=== PATIENT | male | born 1955 | race Caucasian/White ===

== ENCOUNTER 2017-11-20 11:18 | Emergency (ER) | payer SELFPAY ==
--- NOTE | 2017-11-20 11:20 | ER Report ---
History and Physical Time Seen By MD: 11:19 HPI/ROS CHIEF COMPLAINT: Allergic reaction HISTORY OF PRESENT ILLNESS: [must have 4 elements] REVIEW OF SYSTEMS: Constitutional: [No fever, no chills.] Eyes: [No discharge.] ENT: [No sore throat.] Cardiovascular: [No chest pain, no palpitations.] Respiratory: [No cough, no shortness of breath.] Gastrointestinal: [No abdominal pain, no vomiting.] Genitourinary: [No hematuria.] Musculoskeletal: [No back pain.] Skin: [No rashes.] Neurological: [No headache.] Physical Exam General Appearance: The patient is alert, has no immediate need for airway protection and no signs of toxicity. [ ] Eyes: Pupils equal and round no pallor or injection. ENT, Mouth: Mucous membranes are moist. Respiratory: There are no retractions, lungs are clear to auscultation. Cardiovascular: Regular rate and rhythm. [ ] Gastrointestinal: Abdomen is soft and non tender, no masses, bowel sounds normal. Neurological: [ ] Skin: Warm and dry, no rashes. Musculoskeletal: Neck is supple non tender. Extremities are nontender, nonswollen and have full range of motion. [ ] DIFFERENTIAL DIAGNOSIS: After history and physical exam differential diagnosis was considered for [ ] Depart Departure Condition: Stable Disposition: HOME OR SELF-CARE JACKELYN BLANCO MD Nov 20, 2017 11:20
--- NOTE | 2017-11-20 11:32 | ER Report ---
History and Physical Time Seen By MD: 11:32 HPI/ROS CHIEF COMPLAINT: Swelling to testicles and penis, genital warts, bug bites to extremities and torso HISTORY OF PRESENT ILLNESS: 62-year-old male patient presents to emergency room with complaint of swelling to testicles and penis, general warts and bug bites. Patient states that he is had the bug bites now for approximately a week. He states that they're extremely itchy. He states that he has scratched his right foot to the point that it has bled. He states he is noticed a significant amount of drainage from that. He states that he's not had any fevers or chills. He states he is not taking any medication for this. He states he does have a history of genital warts which he has received treatment for the past. He states that he read on the Internet that he is able to use bleach to help resolve that. He states that he tried that in the past and then tried it again this past week. He states that he has developed significant amounts of redness and swelling to the scrotum as well as penis. Patient states he has pain with ambulation, but no pain to the testicles themselves. REVIEW OF SYSTEMS: Respiratory: No cough, no dyspnea. Cardiovascular: No chest pain, no palpitations. Gastrointestinal: No vomiting, no abdominal pain. Musculoskeletal: No back pain. Allergies: Coded Allergies: No Known Drug Allergies (Unverified , 11/20/17) Home Meds Active Scripts Cephalexin 500 Mg Tab (KEFLEX 500 MG TAB) 500 Mg Tablet, 500 MG PO Q6H, #28 TAB Prov:GUY DAN 11/20/17 Permethrin (PERMETHRIN) 60 Gm Cream..g., 60 GM TP ONCE, #1 BOT 1 Refill May repeat x1 after 2 weeks Prov:GUY DAN 11/20/17 Hydroxyzine Hcl (HYDROXYZINE HCL) 25 Mg Tablet, 25 MG PO Q6H PRN for ITCHING, #30 TAB Prov:GUY DAN 11/20/17 Imiquimod (Aldara) 5 % Cream.pack, 1 [place] TD 3XW, #15 [place] Prov:GUY DAN 11/20/17 Past Medical/Surgical History Patient has a past medical history of smoking, genital warts. Patient has a surgical history of multiple orthopedic surgeries, skin grafting. Reviewed Nurses Notes: Yes Constitutional Vital Sign - Last 24 Hours 11/20/17 11:40 Temp 98.4 Pulse 82 Resp 16 B/P (MAP) 147/90 Pulse Ox 97 O2 Delivery Room Air Physical Exam General Appearance: The patient is alert, has no immediate need for airway protection and no current signs of toxicity. Respiratory: Chest is non tender, lungs are clear to auscultation. Cardiac: regular rate and rhythm Gastrointestinal: Abdomen is soft and non tender, no masses, bowel sounds normal . Musculoskeletal: Neck: Neck is supple and non tender. Extremities have full range of motion and are non tender. Skin: No rashes or lesions. Patient has swelling to his penis as well as his scrotum, his scrotum is red. Patient has genital warts at the base of the penis. Patient has several bug bites to lower extremities, upper extremity is, chest and back. There are mildly erythematous, however he does have several areas of excoriation. The right foot does have abrasions to the dorsal aspect. There is some drainage noted, however does not appear to be purulent. Is mildly erythematous and slightly warm to the touch. DIFFERENTIAL DIAGNOSIS: After history and physical exam differential diagnosis was considered for allergic reaction to bleach, genital warts, scabies. Medical Decision Making ED Course/Re-evaluation ED Course Patient was admitted to exam room, history and physical were obtained. The differential diagnoses were considered. On examination patient has what appears to be bug bites on arms, legs, chest and back. He does have significant excoriation to the top of the right foot. Patient also has swelling and redness to the scrotum as well as swelling to the penis. He does have some genital warts at the base of his penis. I discussed findings with patient. We will go ahead and treat him with Aldara for the warts, hydroxyzine to help with the itching, Keflex because I do have some concerns about infection to the top of the right foot. I also believe that these bug bites or caused by scabies. We'll have him use permethrin cream. He is follow-up with primary care provider in the next [place]. I did give him a refill on his permethrin cream that he can repeat that after 2 weeks if there is a need. I discussed the patient who verbalized understanding and agreement with plan. Decision to Disposition Date: Nov 20, 2017 Decision to Disposition Time: 12:13 Depart Departure Latest Vital Signs Vital Signs Date Time Temp Pulse Resp B/P (MAP) Pulse Ox O2 Delivery O2 Flow Rate FiO2 11/20/17 11:40 98.4 82 16 147/90 97 Room Air Impression: Primary Impression: Scabies Additional Impressions: Genital warts Allergic reaction to chemical substance Condition: Improved Disposition: HOME OR SELF-CARE New Scripts Cephalexin 500 Mg Tab (KEFLEX 500 MG TAB) 500 Mg Tablet 500 MG PO Q6H, #28 TAB Prov: GUY DAN 11/20/17 Permethrin (PERMETHRIN) 60 Gm Cream..g. 60 GM TP ONCE, #1 BOT 1 Refill May repeat x1 after 2 weeks Prov: GUY DAN 11/20/17 Hydroxyzine Hcl (HYDROXYZINE HCL) 25 Mg Tablet 25 MG PO Q6H PRN for ITCHING, #30 TAB Prov: GUY DAN 11/20/17 Imiquimod (Aldara) 5 % Cream.pack 1 [place] TD 3XW, #15 [place] Prov: GUY DAN 11/20/17 Patient Instructions: Scabies (ED) Additional Instructions: Increase fluid intake. Sleep in another room. Stay out of the room that you were staying in for the next week. Return to the ER if condition worsens. Follow up with a primary care provider in the next week. Avoid applying bleach to your skin. Wash clothes in hot water. Problem Qualifiers Additional Impressions: Allergic reaction to chemical substance Encounter type: initial encounter Injury intent: undetermined intent Qualified Codes: T65.94XA - Toxic effect of unspecified substance, undetermined, initial encounter GYU DAN Nov 20, 2017 11:32
[2017-11-20 11:40] VITALS: BP 147/90
[2017-11-20] MEDS ORDERED: HYDR-4225 PO (12:11)
[2017-11-20] MEDS ORDERED: CEPH500T7 PO (12:11)
[2017-11-20] MEDS ORDERED: IMIQ1CRE22 TD (12:11)
[2017-11-20] MEDS ORDERED: PERM60CR17 TP (12:11)
== END 2017-11-20 12:19 | disposition home or self-care (01) ==
LOC: ER 11:33
DX: B86 Scabies (principal); B07.9 Viral wart, unspecified; T65.94XA Toxic effect of unspecified substance, undetermined, initial encounter
CPT/HCPCS: 99281

== ENCOUNTER 2017-11-28 13:32 | Emergency (ER) | payer SELFPAY ==
[~2017-11-28 13:32] MED LIST: CEPH500T7 PO; HYDR-4225 PO; IMIQ1CRE22 TD; PERM60CR17 TP
[2017-11-28 13:39] VITALS: BP 137/89
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
[2017-11-28] MEDS ORDERED: CLIN300C99 PO (14:21)
[2017-11-28] MEDS ORDERED: PRED20TA6 PO (14:21)
[2017-11-28] MEDS ORDERED: IVER3TAB PO (14:21)
== END 2017-11-28 14:36 | disposition home or self-care (01) ==
LOC: ER 13:43
DX: L03.818 Cellulitis of other sites (principal); B86 Scabies
CPT/HCPCS: 99282

== ENCOUNTER 2017-12-15 13:05 | Emergency (ER) | payer SELFPAY ==
[~2017-12-15 13:05] MED LIST changes: +CLIN300C99 PO; +IVER3TAB PO; +PRED20TA6 PO
[2017-12-15 13:09] VITALS: BP 130/86
--- NOTE | 2017-12-15 13:36 | ER Report ---
History and Physical Time Seen By MD: 13:20 Hx. of Stated Complaint: pt extremely aggitated, angry at the hospital. wont tell staff what's wrong states he doesn't know what's wrong, wants ivelisa to fix his problem: thinks he has scabies. red swelling on arms. states he has a temp for several does but won't take his temp HPI/ROS CHIEF COMPLAINT: Rash HISTORY OF PRESENT ILLNESS: 62-year-old male returns emergency department for his 3rd visit for a rash which she believes to be scabies is been treated with permethrin cream and various antibiotics and topical steroids a little to no benefit returns again concerning he may have a infection which can cause something more systemic think she may be allergic reaction did finally give a history that he does have allergic dermatitis in the past as well as eczema which I think is probably precipitating factor to this and and poor hygiene patient states that he's been excoriating himself on a regular basis and having significant irritation and done a dermal itchiness patient denies any recent travel other than the fact 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 Cardiovascular: No chest pain, no palpitations. Gastrointestinal: No vomiting, no abdominal pain. Musculoskeletal: No back pain. Remainder of the 14 system rev: Yes Allergies: Coded Allergies: No Known Drug Allergies (Unverified , 12/15/17) Home Meds Active Scripts Prednisone (PREDNISONE) 20 Mg Tablet, 40 MG PO QDAY, #17 TAB 40mg once a day for 4 days. 30mg once a day for 3 days. 20mg once a day for 3 days. 10mg once a day for 2 days. Prov:[facility]ORENCE MEIER [facility] 11/28/17 Clindamycin Hcl (CLINDAMYCIN HCL) 300 Mg Capsule, 300 MG PO Q6H for 7 Days, #28 CAPSULE 0 Refills Prov:FLORENCE MEIER [employer] 11/28/17 Ivermectin (Ivermectin) 3 Mg Tablet, 15 MG PO DAILY, #25 TAB 0 Refills 15mg on days 1, 2, 8, 9, 15 Prov:[facility]ENCE MEIER [facility] 11/28/17 Cephalexin 500 Mg Tab (KEFLEX 500 MG TAB) 500 Mg Tablet, 500 MG PO Q6H, #28 TAB Prov:GUY DAN [facility] 11/20/17 Permethrin (PERMETHRIN) 60 Gm Cream..g., 60 GM TP ONCE, #1 BOT 1 Refill May repeat x1 after 2 weeks Prov:GUY DAN [facility] 11/20/17 Hydroxyzine Hcl (HYDROXYZINE HCL) 25 Mg Tablet, 25 MG PO Q6H PRN for ITCHING, #30 TAB Prov:GUY DAN [facility] 11/20/17 Imiquimod (Aldara) 5 % Cream.pack, 1 [place] TD 3XW, #15 [place] Prov:GUY DAN [facility] 11/20/17 Reviewed Nurses Notes: Yes Old Medical Records Reviewed: Yes Hx Substance Use Disorder: No Hx Alcohol Use: No Constitutional Vital Sign - Last 24 Hours 12/15/17 13:09 Resp 20 B/P (MAP) 130/86 O2 Delivery Room Air Physical Exam General Appearance: The patient is alert, has no immediate need for airway protection and no current signs of toxicity. [ ] Eyes: Pupils equal and round no injection. Respiratory: Chest is non tender, lungs are clear to auscultation. Cardiac: regular rate and rhythm [ ] Gastrointestinal: Abdomen is soft and non tender, no masses, bowel sounds normal. Musculoskeletal: Neck: Neck is supple and non tender. Extremities have full range of motion and are non tender. Skin: Various rashes in various stages consistent with a eczema versus contact dermatitis versus psoriatic change groin examination mild to moderate excoriation noted primarily in the extremity creases [ ] DIFFERENTIAL DIAGNOSIS: After history and physical exam differential diagnosis was considered for eczema psoriatic changes dermatomic dermatological changes secondary to contact dermatitis possible follow-up scabies evaluation Medical Decision Making ED Course/Re-evaluation ED Course ED clinical course 8-year-old male returns for his 3rd visit for a dermatological evaluation has been on numerous antibiotics and there is topical and oral steroid creams tablets with little to no benefit he does say that in his groin is cleared up and that his lower chimneys have gotten better we will refer him to a dermatological for evaluation Decision to Disposition Date: Dec 15, 2017 Decision to Disposition Time: 13:35 Depart Departure Latest Vital Signs Vital Signs Date Time Temp Pulse Resp B/P (MAP) Pulse Ox O2 Delivery O2 Flow Rate FiO2 12/15/17 13:09 20 130/86 Room Air Impression: Primary Impression: Dermatitis Condition: Condition Unchanged Disposition: HOME OR SELF-CARE Referrals: CONRADO PEREZ MD 1 Day Patient Instructions: Dermatitis (ED) KARRI NEAL MD Dec 15, 2017 13:36
== END 2017-12-15 14:09 | disposition home or self-care (01) ==
LOC: ER 13:16
DX: L30.9 Dermatitis, unspecified (principal)
CPT/HCPCS: 99281